=== PATIENT | male | born 1960 | race Caucasian/White ===

== ENCOUNTER 2016-11-09 13:35 | Emergency (ER) | payer MEDICARE, OTHER, MEDICAID ==
--- NOTE | 2016-11-09 14:10 | Emergency Department Record ---
History of Present Illness - General Chief complaint: Lower Extremity Pain Stated complaint: DIABETIC LEG PAIN Time Seen by Provider: 11/09/16 14:01 Source: Patient Mode of Arrival: Wheelchair Limitations: No limitations - History of Present Illness Initial comments: 56 yo male presents to ED with a CC of "diabetic leg pain" reports that "I have may have another infection in the bone". Patient reports a history of previous symptoms s/p amputations to the 2nd toes on both feet. Patient reports a history of IDDM, denies PVD. Patient reports similar symptoms 1 month ago following admission to [facility] for 18 days. Patient denies fevers, chills, nausea, or vomiting symptoms. Patient reports taking oral Morphine prior to arrival. MD Complaint: Extremity pain Onset/Timin -: Week(s) Location: Left, Right, Foot, Lower Leg History of Same: Yes -: Yes Arthralgia Radiation: None Quality: Aching Consistency: Constant Improves with: Nothing Worsens with: Nothing Associated Symptoms: Denies other symptoms - Related Data Home Medications Medication Instructions Recorded Confirmed Last Taken Albuterol Sulfate 0.083% [Neb] 3 ml NEB .EVERY 4-6 HOURS PRN 11/09/16 11/09/16 1 Day Ago Aspirin [Aspirin EC] 81 mg PO DAILY 11/09/16 11/09/16 1 Day Ago Beclomethasone Dipropionate [Qvar 8.7 gm IH BID 11/09/16 11/09/16 1 Day Ago 40 Mcg Inhaler] Canagliflozin [Invokana] 300 mg PO DAILY 11/09/16 11/09/16 1 Day Ago Docusate Sodium [Colace] 100 mg PO DAILY 11/09/16 11/09/16 1 Day Ago Fluticasone/Salmeterol [Advair 1 each IH DAILY 11/09/16 11/09/16 1 Day Ago 250-50 Diskus] Furosemide [Lasix] 20 mg PO DAILY 11/09/16 11/09/16 1 Day Ago Gabapentin [Neurontin] 600 mg PO BID 11/09/16 11/09/16 1 Day Ago Hydrocodone/Acetaminophen [[place] 1 tab PO Q6H PRN 11/09/16 11/09/16 1 Day Ago 10mg/325mg] Lisinopril 20 mg PO DAILY 11/09/16 11/09/16 1 Day Ago Metformin HCl 500 mg PO BID 11/09/16 11/09/16 1 Day Ago Metoprolol Tartrate [Lopressor] 100 mg PO DAILY 11/09/16 11/09/16 1 Day Ago Montelukast Sodium [Singulair] 10 mg PO QHS 11/09/16 11/09/16 1 Day Ago Morphine Sulfate [Msir] 15 mg PO BID 11/09/16 11/09/16 1 Day Ago Ranitidine HCl [Heartburn Relief] 150 mg PO BID 11/09/16 11/09/16 1 Day Ago Roflumilast [Daliresp] 500 mcg PO DAILY 11/09/16 11/09/16 1 Day Ago Simvastatin [Zocor] 20 mg PO QHS 11/09/16 11/09/16 1 Day Ago Tiotropium [place] [Spiriva] 18 mcg IH DAILY 11/09/16 11/09/16 1 Day Ago Venlafaxine HCl [Venlafaxine HCl 75 mg PO DAILY 11/09/16 11/09/16 1 Day Ago ER] Previous Rx's Medication Instructions Recorded Clindamycin HCl [Cleocin HCl] 300 mg PO QID #40 capsule 11/09/16 Allergies Allergy/AdvReac Type Severity Reaction Status Date / Time pregabalin [From Lyrica] Allergy NEUROTOXICI Verified 11/09/16 14:05 TY Review of Systems Constitutional: Denies: Chills, Fever, Malaise, Night sweats Eyes: Denies: Eye discharge, Eye pain ENT: Denies: Congestion, Ear pain, Epistaxis Respiratory: Denies: Cough, Dyspnea Cardiovascular: Denies: Chest pain, Dyspnea on exertion Endocrine: Denies: Fatigue, Heat or cold intolerance Gastrointestinal: Denies: Abdominal pain, Nausea, Vomiting Genitourinary: Denies: Incontinence, Retention Musculoskeletal: Reports: Arthralgia. Denies: Back pain, Gout, Joint swelling Skin: Denies: Bruising, Change in color Neurological: Denies: Abnormal gait, Confusion, Headache, Seizure Psychiatric: Denies: Anxiety Hematological/Lymphatic: Denies: Anemia, Blood Clots Physical Exam - General General Appearance: Alert, Oriented x3, Cooperative, Mild distress, Other ( patient's pain appears well controlled, conversational on examination) Limitations: No limitations - Head Head exam: Atraumatic, Normocephalic, Normal inspection Head exam detail: negative: Abrasion, Contusion, Aly's sign, General tenderness, Hematoma, Laceration - Eye Eye exam: Normal appearance. negative: Conjunctival injection, Periorbital swelling, Periorbital tenderness, Scleral icterus - ENT Ear exam: negative: Auricular hematoma, Auricular trauma Nasal Exam: negative: Active bleeding, Discharge, Dried blood, Foreign body Mouth exam: negative: Drooling, Laceration, Muffled voice, Tongue elevation - Neck Neck exam: Normal inspection. negative: Meningismus, Tenderness - Respiratory Respiratory exam: Normal lung sounds bilaterally. negative: Rales, Respiratory distress, Rhonchi, Stridor - Cardiovascular Cardiovascular Exam: Regular rate, Normal rhythm, Normal heart sounds Peripheral Pulses: 3+: Dorsalis Pedis (R) (strong DPP present), Dorsalis Pedis ( L) (strong DPP present) - GI/Abdominal GI/Abdominal exam: Soft. negative: Rebound, Rigid, Tenderness - Rectal Rectal exam: Deferred - exam: Deferred - Extremities Extremities exam: Tenderness, Other (Chronic venous changes to the LEs bilaterally with numerous scabbed lesions present, no erythema present, not warm to palpation, ulceration to the left fore-foot which is new per family in the last several days without signs of redness or acute infection present. Previous 2nd toe amputations are present bilaterally.). negative: Calf tenderness, Pedal edema - Back Back exam: Denies: CVA tenderness (R), CVA tenderness (L), Paraspinal tenderness , Rash noted - Neurological Neurological exam: Alert, Oriented X3 - Psychiatric Psychiatric exam: Normal affect, Normal mood - Skin Skin exam: Normal color. negative: Abrasion Type of lesion: negative: abrasion Course - Reevaluation(s) Reevaluation #1: 11/09/16 15:02 Labs reviewed, glucose 357, AST 265, ALT 287. Labs are otherwise grossly unremarkable for an acute process. Reevaluation #2: 11/09/16 16:55 CT Lower left foot: No evidence for osteomyelitis on CT imaging X-ray Left/Right lower extremities: No gas or evidence for osteomyelitis is present Reevaluation #3: 11/09/16 17:00 MDM: patient reassessed and updated on all results, he is resting comfortably at this time. Patient has no clinical signs of severe cellulitis on examination , no evidence of osteomyelitis on CT and plain film radiography. Will initiate treatment for his diabetic foot ulcer with Clindamcyin with instructions for him to return to ED for any fevers, chills, or worsening of his symptoms. The ulcer does not apepar to be acute infected on examination, however there is minimal STS to the foot on CT imaging. Patient was instructed to call his PCP for a wound care referral Friday as well in [place]. Patient and his daughter verbalize understanding of all instructions, and the patient appears stable for discharge at this time. 11/09/16 17:06 Medical Decision Making - Lab Data Result diagrams: 11/09/16 14:30 11/09/16 14:30 Disposition Disposition: Discharge Clinical Impression: Diabetic foot ulcer Qualifiers: Diabetes mellitus type: type 2 Laterality: left Qualified Code(s): E11.621 - Type 2 diabetes mellitus with foot ulcer; L97.529 - Non-pressure chronic ulcer of other part of left foot with unspecified severity Disposition: Home, Self-Care Condition: (2) Stable Instructions: Diabetic Foot Ulcers (ED) Additional Instructions: Return to ED if your symptoms worsen or if you have any concerns. Follow-up with visiting physicians in 1-3 days as directed. Clindamcyin as directed. Follow-up with your PCP to obtain wound care referral in [place]. Prescriptions: Clindamycin HCl [Cleocin HCl] 300 mg PO QID #40 capsule Forms: Patient Portal Access Time of Disposition: 17:05
[2016-11-09 14:33] LABS: BASO % 1.3 % (0-6); GRAN % 61.4 % (47-80); HEMATOCRIT 48.1 % (42.0-52.0); HEMOGLOBIN 15.8 gm/dl (14.0-18.0); LYMPH % 26.5 % (16-45); MEAN CORPUSCULAR HEMOGLOBIN 27.9 pg (27-33); MEAN CORPUSCULAR HGB CONC 32.8 g/dl (32-36); MEAN PLATELET VOLUME 10.7 fl (7.4-10.4); MONO % 6.8 % (0-9); PLATELET COUNT 173 K/uL (130-400); RED BLOOD COUNT 5.66 M/uL (4.40-5.70); RED CELL DISTRIBUTION WIDTH 14.2 % (11.5-14.5)
[2016-11-09 14:47] LABS: ALB/GLOB RATIO 1.1 (1.1-1.8); ALBUMIN 3.8 gm/dL (3.5-5.0); ALKALINE PHOSPHATASE 147 U/L (38-126); ALT/SGPT 287 U/L (21-72); ANION GAP 13.6 (7-16); AST/SGOT 265 U/L (17-59); BILIRUBIN,TOTAL 0.97 mg/dL (0.2-1.3); BLOOD UREA NITROGEN 11 mg/dL (9-20); CARBON DIOXIDE 25.4 mmol/L (22-30); CREATININE 0.8 mg/dL (0.66-1.25); EST GLOMERULAR FILTRATION RATE > 60 ml/min; GLUCOSE,RANDOM 357 mg/dL (70-110); TOTAL PROTEIN 7.3 gm/dL (6.3-8.2)
[2016-11-09] MEDS ORDERED: HYDROMORPHONE HCL 1 MG/ML CPJ IVP ONE ×2 (15:58→17:05)
[2016-11-09] MEDS ORDERED: CLINDAMYCIN 150 MG CAP PO ONE (17:05)
== END 2016-11-09 17:42 | disposition home or self-care (01) ==
LOC: ER 13:35
DX: E11.621 Type 2 diabetes mellitus with foot ulcer (principal); L97.429 Non-pressure chronic ulcer of left heel and midfoot with unspecified severity; E11.65 Type 2 diabetes mellitus with hyperglycemia; Z79.84 Long term (current) use of oral hypoglycemic drugs
CPT/HCPCS: 99284 ×2; 96376; 96374; 85025; 80053; 73590 ×2; 73701; Q9967; J1170